=== PATIENT | male | born 1980 | race Caucasian/White ===

== ENCOUNTER 2021-05-01 18:54 | Inpatient (IN) ==
[2021-05-01] MEDS ORDERED: LORazepam 1 MG TAB SL STA (19:14)
--- NOTE | 2021-05-01 19:22 | Emergency Department Note ---
History of Present Illness General Chief complaint: Mental Health Evaluation Stated complaint: 302 Time Seen by Provider: 05/01/21 18:59 History of Present Illness 41-year-old male presents to the ED with a chief complaint of a suicide attempt. The patient reportedly was found in his car with a running with a hose connected to his tailpipe with a hose going into the car. The patient denied that he was trying to kill himself. He states that he is going through some stuff. He would not elaborate what exactly he was going through. He states that his 3-year-old child and are in [place]. He is a real estate closing coordinator. He recently bought a house here. He states that it is not going to be ready for couple of months. He also has a 22-year-old daughter. It is unclear at this time who called police but the patient states that they "pinged" his phone and that is how the police found him. He states he did not call the police. The patient seems upset and agitated that he is here. He does not feel he needs mental health services. Home Medications Medication Instructions Recorded Confirmed Type None (Patient States No Home Meds) #0 12/04/08 History OXYCODONE/ACETAMINOPHEN 5MG/325MG 2 tab PO Q6HR PRN #14 04/04/09 Rx (PERCOCET 5MG/325MG) Allergies Allergy/AdvReac Type Severity Reaction Status Date / Time No Known Allergies Allergy Unknown Verified 04/23/04 15:51 caffeine AdvReac Mild NO Verified 09/16/09 02:[address] COVINGTON [id number] Allergy Unknown Uncoded 09/24/02 15:42 Past Med/Surg History Social History Smoking Status: Unknown if ever smoked Preferred Language: Uzbek Review of Systems A total of 10 systems reviewed and were otherwise negative Physical Exam Vital Signs Vital Signs - 24 hr 05/01/21 18:57 05/01/21 21:21 Temperature 36.9 C Temperature Source Oral Pulse Rate 65 Respiratory Rate 20 Respiratory Depth Normal Blood Pressure 128/85 Blood Pressure [Left Arm] 113/59 L Blood Pressure Mean 99 Blood Pressure Mean [Left Arm] 77 Blood Pressure Position Sitting Pulse Oximetry 96 Oxygen Delivery Method Room Air Sepsis Recent Fever Within 48 Hours No Sepsis New/Unexplained Change in Mental Status N/A Sepsis Action Taken by Nursing No Action Required CONSTITUTIONAL/VITAL SIGNS: Reviewed / noted above. GENERAL: Non-toxic in appearance. INTEGUMENTARY: Warm, dry, and Wol[place]. HEAD: Normocephalic. EYES: without scleral icterus or trauma. ENT/OROPHARYNX: clear and moist. LYMPHADENOPATHY/NECK: Is supple without lymphadenopathy or meningismus. RESPIRATORY: Clear to auscultation bilaterally. No increased work of breathing. CARDIOVASCULAR: Regular rate and rhythm. GI/ABDOMEN: Soft and nontender. No organomegaly or pulsatile mass. EXTREMITIES: Warm and well perfused. BACK: No CVA tenderness. NEUROLOGICAL: Intact without focal deficits. PSYCHIATRIC: Patient seems upset and agitated that he has been brought here. He denies being suicidal. He states that he has a lot of stuff he needs to do. He denies the claim that he was trying to kill himself. MUSCULOSKELETAL: Normally developed with good muscle tone. TRIAGE NURSING DOCUMENTATION REVIEWED. Course Administered Medications Discontinued Medications Haloperidol Lactate (Haloperidol Lactate 5 Mg/Ml 1 Ml Vial) 10 mg IM NOW STA Stop: 05/01/21 19:44 Last Admin: 05/01/21 19:52 Dose: 10 mg Documented by: [id number] Haloperidol Lactate (Haloperidol Lactate 5 Mg/Ml 1 Ml Vial) Confirm Administered Dose 10 mg .ROUTE .STK-MED ONE Stop: 05/01/21 19:44 Last Admin: 05/01/21 20:34 Dose: Not Given Documented by: [id number] Lorazepam (Lorazepam 1 Mg Tab) 2 mg SL NOW STA Stop: 05/01/21 19:15 Last Admin: 05/01/21 19:23 Dose: 2 mg Documented by: [id number] Lorazepam (Lorazepam 2 Mg/Ml Vial (Im Use)) 2 mg IM NOW STA Stop: 05/01/21 19:43 Last Admin: 05/01/21 19:52 Dose: 2 mg Documented by: [id number] Lorazepam (Lorazepam 2 Mg/Ml Vial (Im Use)) Confirm Administered Dose 2 mg .ROUTE .STK-MED ONE Stop: 05/01/21 19:44 Last Admin: 05/01/21 20:34 Dose: Not Given Documented by: [id number] Medical Decision Making Differential Diagnosis Differential includes toxic ingestions, self-mutilation, suicidal ideation, suicide attempt, depression. Medical Records Attestation: I reviewed the patient's medical records. Home Medications Current Medication List: was personally reviewed by me Laboratory Data Attestation: I reviewed the patient's lab results. Result diagrams: 05/01/21 20:56 05/01/21 20:56 Lab Results 05/01/21 05/01/21 05/01/21 Range/Units 20:56 20:56 20:56 WBC 6.55 (4.8-10.8) K/uL RBC 4.76 (4.7-6.1) M/uL Hgb 12.4 L (14.0-18.0) g/dL Hct 38.3 L (42-52) % MCV 80.5 (80-100) fL MCH 26.1 (25-34) pg MCHC 32.4 (32-36) g/dL RDW Std Deviation 54.4 H (36.4-46.3) fL RDW Coeff of Robby 18.4 H (11.5-14.5) % Plt Count 296 (130-400) K/uL MPV 8.4 (7.4-10.4) fL Immature Gran % (Auto) 0.2 % Neut % (Auto) 53.8 % Lymph % (Auto) 36.0 % Fajardo % (Auto) 6.9 % Eos % (Auto) 2.9 % Baso % (Auto) 0.2 % Neut # (Auto) 3.53 (1.4-6.5) K/uL Lymph # (Auto) 2.36 (1.2-3.4) K/uL Fajardo # (Auto) 0.45 (0.11-0.59) K/uL Eos # (Auto) 0.19 (0-0.5) K/uL Baso # (Auto) 0.01 (0-0.2) K/uL Immature Gran # (Auto) 0.01 (0.00-0.02) K/uL Carboxyhemoglobin % THgb Sodium 142 (136-145) mmol/L Potassium 3.5 (3.5-5.1) mmol/L Chloride 107 (98-107) mmol/L Carbon Dioxide 26 (21-32) mmol/L Anion Gap 9.0 (3-11) BUN 10 (7-18) mg/dl Creatinine 0.91 (0.6-1.4) mg/dl Est Cr Clr Drug Dosing 117.1 ml/min Est GFR ( Amer) 119.2 ml/min Est GFR (Non-Af Amer) 102.9 ml/min BUN/Creatinine Ratio 11.4 (10-20) Glucose 78 (70-99) mg/dl Calcium 8.7 (8.5-10.1) mg/dl Total Bilirubin 0.3 (0.2-1) mg/dl AST 48 H (15-37) U/L ALT 81 H (12-78) U/L Alkaline Phosphatase 79 (45-117) U/L Total Protein 6.9 (6.4-8.2) gm/dl Albumin 3.5 (3.4-5.0) gm/dl Globulin 3.4 (2.5-4.0) gm/dl Albumin/Globulin Ratio 1.0 (0.9-2) TSH 1.540 (0.300-4.500) uIu/ml Salicylates 2.0 L (2.8-20) mg/dl Acetaminophen < 2 L (10-30) ug/ml Ethyl Alcohol mg/dL (0-3) mg/dl COVID-19 Eval Order SARS-CoV-2 (PCR) (Negative) 05/01/21 05/01/21 05/01/21 Range/Units 20:56 20:56 22:03 WBC (4.8-10.8) K/uL RBC (4.7-6.1) M/uL Hgb (14.0-18.0) g/dL Hct (42-52) % MCV (80-100) fL MCH (25-34) pg MCHC (32-36) g/dL RDW Std Deviation (36.4-46.3) fL RDW Coeff of Robby (11.5-14.5) % Plt Count (130-400) K/uL MPV (7.4-10.4) fL Immature Gran % (Auto) % Neut % (Auto) % Lymph % (Auto) % Fajardo % (Auto) % Eos % (Auto) % Baso % (Auto) % Neut # (Auto) (1.4-6.5) K/uL Lymph # (Auto) (1.2-3.4) K/uL Fajardo # (Auto) (0.11-0.59) K/uL Eos # (Auto) (0-0.5) K/uL Baso # (Auto) (0-0.2) K/uL Immature Gran # (Auto) (0.00-0.02) K/uL Carboxyhemoglobin 0.0 % THgb Sodium (136-145) mmol/L Potassium (3.5-5.1) mmol/L Chloride (98-107) mmol/L Carbon Dioxide (21-32) mmol/L Anion Gap (3-11) BUN (7-18) mg/dl Creatinine (0.6-1.4) mg/dl Est Cr Clr Drug Dosing ml/min Est GFR ( Amer) ml/min Est GFR (Non-Af Amer) ml/min BUN/Creatinine Ratio (10-20) Glucose (70-99) mg/dl Calcium (8.5-10.1) mg/dl Total Bilirubin (0.2-1) mg/dl AST (15-37) U/L ALT (12-78) U/L Alkaline Phosphatase (45-117) U/L Total Protein (6.4-8.2) gm/dl Albumin (3.4-5.0) gm/dl Globulin (2.5-4.0) gm/dl Albumin/Globulin Ratio (0.9-2) TSH (0.300-4.500) uIu/ml Salicylates (2.8-20) mg/dl Acetaminophen (10-30) ug/ml Ethyl Alcohol mg/dL 19.6 H (0-3) mg/dl COVID-19 Eval Order Covid19 at [facility] SARS-CoV-2 (PCR) (Negative) 05/01/21 Range/Units 22:03 WBC (4.8-10.8) K/uL RBC (4.7-6.1) M/uL Hgb (14.0-18.0) g/dL Hct (42-52) % MCV (80-100) fL MCH (25-34) pg MCHC (32-36) g/dL RDW Std Deviation (36.4-46.3) fL RDW Coeff of Robby (11.5-14.5) % Plt Count (130-400) K/uL MPV (7.4-10.4) fL Immature Gran % (Auto) % Neut % (Auto) % Lymph % (Auto) % Fajardo % (Auto) % Eos % (Auto) % Baso % (Auto) % Neut # (Auto) (1.4-6.5) K/uL Lymph # (Auto) (1.2-3.4) K/uL F[place]ardo # (Auto) (0.11-0.59) K/uL Eos # (Auto) (0-0.5) K/uL Baso # (Auto) (0-0.2) K/uL Immature Gran # (Auto) (0.00-0.02) K/uL Carboxyhemoglobin % THgb Sodium (136-145) mmol/L Potassium (3.5-5.1) mmol/L Chloride (98-107) mmol/L Carbon Dioxide (21-32) mmol/L Anion Gap (3-11) BUN (7-18) mg/dl Creatinine (0.6-1.4) mg/dl Est Cr Clr Drug Dosing ml/min Est GFR ( Amer) ml/min Est GFR (Non-Af Amer) ml/min BUN/Creatinine Ratio (10-20) Glucose (70-99) mg/dl Calcium (8.5-10.1) mg/dl Total Bilirubin (0.2-1) mg/dl AST (15-37) U/L ALT (12-78) U/L Alkaline Phosphatase (45-117) U/L Total Protein (6.4-8.2) gm/dl Albumin (3.4-5.0) gm/dl Globulin (2.5-4.0) gm/dl Albumin/Globulin Ratio (0.9-2) TSH (0.300-4.500) uIu/ml Salicylates (2.8-20) mg/dl Acetaminophen (10-30) ug/ml Ethyl Alcohol mg/dL (0-3) mg/dl COVID-19 Eval Order SARS-CoV-2 (PCR) NEGATIVE (Negative) MDM Narrative Patient presents to the ED by police. He reportedly was trying to asphyxiate himself with carbon monoxide by placing a hose from his tailpipe to his car. He was found by police in this manner. Details listed above. His vital signs are normal. The patient CBC and chemistry panel was unremarkable. Carboxyhemoglobin was 0. Alcohol was 19. The patient is felt to be medically cleared. He was initially treated with Haldol and Ativan he because of an lack of cooperation, however after the Haldol, he was cooperative for testing. Signed out to Ava Spain at the end of my shift. Impression & Plan Depression with suicidal ideation Discharge Plan Visit Data Chief Complaint: Mental Health Evaluation Stated Complaint: 302 Discharge Problem: Depression with suicidal ideation Patient Disposition: Transfer Behavioral Health Fac Forms Stand Alone Forms: My [facility], Suicide Prevention Resources Prescriptions Prescriptions: No Action None (Patient States No Home Meds) . Qty: 0 RF: 0 OXYCODONE/ACETAMINOPHEN 5MG/325MG (PERCOCET 5MG/325MG) tablet 2 tab PO Q6HR PRN Qty: 14 RF: 0 Referrals Referrals: PCP,NO [Primary Care Provider] -
[2021-05-01] MEDS ORDERED: LORazepam 2 MG/ML VIAL (IM USE) IM STA (19:42)
[2021-05-01] MEDS ORDERED: HALOPERIDOL LACTATE 5 MG/ML 1 ML VIAL IM STA (19:43)
[2021-05-01] MEDS ORDERED: HALOPERIDOL LACTATE 5 MG/ML 1 ML VIAL ONE (19:43)
[2021-05-01] MEDS ORDERED: LORazepam 2 MG/ML VIAL (IM USE) ONE (19:43)
[2021-05-01 21:08] LABS: Basophils # (auto) 0.01 K/uL (0-0.2); Basophils % (auto) 0.2 %; Eosinophils # (auto) 0.19 K/uL (0-0.5); Eosinophils % (auto) 2.9 %; Hematocrit (blood only) 38.3 % (42-52); Hemoglobin 12.4 g/dL (14.0-18.0); Immature Granulocytes # (auto) 0.01 K/uL (0.00-0.02); Immature Granulocytes % (auto) 0.2 %; Lymphocytes # (auto) 2.36 K/uL (1.2-3.4); Mean Corpuscular Hemoglobin 26.1 pg (25-34); Mean Corpuscular Hgb Conc 32.4 g/dL (32-36); Mean Corpuscular Volume 80.5 fL (80-100); Mean Platelet Volume 8.4 fL (7.4-10.4); Monocytes # (auto) 0.45 K/uL (0.11-0.59); Monocytes % (auto) 6.9 %; Neutrophils # (auto) 3.53 K/uL (1.4-6.5); Neutrophils % (auto) 53.8 %; Platelet Count 296 K/uL (130-400); RDW Coefficient of Variation 18.4 % (11.5-14.5); RDW Standard Deviation 54.4 fL (36.4-46.3); Red Blood Count 4.76 M/uL (4.7-6.1); White Blood Count 6.55 K/uL (4.8-10.8)
[2021-05-01 21:31] LABS: Acetaminophen < 2 ug/ml (10-30)
[2021-05-01 21:39] LABS: Albumin Level 3.5 gm/dl (3.4-5.0); BUN Creatinine Ratio 11.4 (10-20); Calcium 8.7 mg/dl (8.5-10.1); Creatinine Clr Calc Pharmacy 117.1 ml/min; Est GFR (African American) 119.2 ml/min; Est GFR (Non-African American) 102.9 ml/min; Potassium 3.5 mmol/L (3.5-5.1)
[2021-05-01 21:50] LABS: Bilirubin,Total 0.3 mg/dl (0.2-1); Globulin 3.4 gm/dl (2.5-4.0); Thyroid Stimulating Hormone 1.54 uIu/ml (0.300-4.500); Total Protein 6.9 gm/dl (6.4-8.2)
--- NOTE | 2021-05-02 07:19 | Emergency Department Note ---
ED Visit Note I received this patient in signout at the change of shift from Dr. Pruett, pending a more sober state and mental health evaluation. Patient remained cooperative during most of my time with him, he did request a nicotine patch. Patient did "demand to see the doctor" and asked only when and what time he was leaving. Patient was informed again of the 302 and this meant he was kept against his will due to the suicide attempt earlier. Case management and crisis will perform a bed search, patient was signed out at the change of shift to Dr. Huerta pending final disposition. .
--- NOTE | 2021-05-02 07:51 | Emergency Department Note ---
ED Visit Note The patient was taken in signout from Dr. Spain at the change of shift. Please see that note for details. The patient was pending through to evaluation for suicide attempt. Patient rested throughout the night. No significant issues. Patient was sedated by Dr. Pruett after ED arrival. Patient did well and was given his daily medications. His bed search is currently underway. Patient was reassessed prior to signout and was stable. Case was signed out to Dr. Levin at the change of shift. .
[2021-05-02 08:39] LABS: Appearance Urine Clear (Clear); Bilirubin Urine Negative (Negative); Blood Urine Negative (Negative); Color Urine Yellow; Glucose Urine UA Negative (Negative); Ketones Urine 2+ (Negative); Leukocyte Esterase Urine Negative (Negative); Nitrite Urine Negative (Negative); Protein Urine Negative (Negative); Urobilinogen Urine Negative (Negative)
[2021-05-02 09:01] LABS: Amphetamines+Metham, Urine Neg (Neg); Barbiturates, Urine Neg (Neg); Benzodiazepine, Urine Pos (Neg); Cocaine, Urine Neg (Neg); MDMA (Ecstacy), Urine Pos (Neg); Methadone, Urine Neg (Neg); Opiate, Urine Neg (Neg); Phencyclidine, Urine Neg (Neg)
[2021-05-02] MEDS: ALPRAZolam 0.5 MG TABLET PO PRN ×2 (13:06→22:59)
[2021-05-02] MEDS: GABAPENTIN 800 MG TAB PO SCH (20:41)
--- NOTE | 2021-05-02 21:27 | Emergency Department Note ---
ED Visit Note I received this patient at change of shift signout from Dr. ZIEGLER. Please see his note for care provided earlier in the day. The patient is a 41-year-old male who presented to the emergency department with a significant suicidal gesture. The patient was medically cleared prior. He was started on his medications. The patient was seen and evaluated by the mental health registered nurse hh case manager. He was felt to be a candidate for a 302. The patient had a 302 petition it was filled out and signed. The patient is undergoing bed search currently. The patient had no needs voiced during my shift. Currently the patient is being evaluated by the delegate from 3 S. The patient was signed out to Dr. Spain at change of shift. Continuation of care and further disposition. .
--- NOTE | 2021-05-03 07:38 | Emergency Department Note ---
ED Visit Note I received this patient in signout at the change of shift from Dr. Levin, pending a mental health bed search. The patient is on a 302. Patient is awaiting final disposition, signed out to Dr. Fragoso at the change of shift. Please see his notes for details. .
[2021-05-03] MEDS: GABAPENTIN 800 MG TAB PO SCH (09:01)
[2021-05-03] MEDS: ALPRAZolam 0.5 MG TABLET PO PRN ×3 (09:02→22:04)
--- NOTE | 2021-05-03 09:27 | Emergency Department Note ---
ED Visit Note This patient was signed out to me at shift change by Dr. Spain. The patient has been medically cleared and has had a 302 petition signed off and was awaiting placement. The patient was seen while he was awaiting placement in her emergency department by the psychiatrist who ordered Zyprexa. The patient will be signed out at shift change to the evening doctor. .
--- NOTE | 2021-05-03 13:20 | Communication Note ---
Date of Service: May 03, 2021 Psychiatric consultation requested as patient has been in emergency department for greater than 24 hours. Patient's initial presentation is consistent with a mixed manic episode, and his suicide attempt was severe, life-threatening, and requires him to be hospitalized. In the emergency department patient did require IM medications, but is since been able to maintain behavioral control. Upon speaking to the patient this afternoon, he is still quite irritable and agitated with pressured speech and little to no insight. He is agreeable to take medi cations to address his mood, but maintains that he does not have bipolar disorder despite the rapid mood swings he has been displaying over the last several months. Recommendations: Zyprexa 2.5 mg p.o. 3 times daily Xanax 1 mg p.o. 3 times daily as needed Gabapentin nightly Patient will require inpatient psychiatric hospitalization
[2021-05-03] MEDS: OLANZAPINE 2.5 MG TAB PO SCH ×2 (13:53→20:48)
[2021-05-03] MEDS: GABAPENTIN 600 MG TAB PO SCH (20:48)
--- NOTE | 2021-05-04 00:46 | Emergency Department Note ---
ED Visit Note Patient is a 41-year-old male who was signed out to me from Dr. Fragoso. 302 has been signed. He had suicidal ideations. He was seen by our psychiatry. Placed on Zyprexa. Signed out to Dr. Spain at the change of shift. .
[2021-05-04 04:47] VITALS: O2SAT 99
--- NOTE | 2021-05-04 06:50 | Emergency Department Note ---
ED Visit Note I received this patient in signout at the change of shift from Dr. Shaw, pending psychiatric bed placement. The patient is here on a 302. He has been on olanzapine per psychiatric recommendations. Patient has been calm and cooperative overnight. Case has been signed out to Dr. Fragoso this morning as the bed search resumes. Please see his notes for further details. .
--- NOTE | 2021-05-04 07:32 | Emergency Department Note ---
ED Visit Note This patient was signed out to me at shift change by Dr. Spain. This patient is currently on 3 of 2 petition secondary to suicidal attempt/gesture. He has been found difficult to place. Our mental health team has rounded on him and start him on Zyprexa which has helped. They did did round on him again today and are going to take him in her mental health unit for further treatment and evaluation and he will be admitted here. .
[2021-05-04] MEDS: OLANZAPINE 2.5 MG TAB PO SCH ×2 (09:42→14:12)
[2021-05-04] MEDS: GABAPENTIN 600 MG TAB PO SCH ×2 (09:42→21:07)
[2021-05-04] MEDS: ALPRAZolam 0.5 MG TABLET PO PRN (09:43)
[2021-05-04] MEDS ORDERED: hydrOXYzine HCl 25 MG TAB PO PRN (12:47)
[2021-05-04] MEDS ORDERED: SODIUM CHLORIDE 0.65% NA SOLN 45 ML (OCEAN) PRN (12:47)
[2021-05-04] MEDS ORDERED: MAGNESIUM HYDROXIDE SUSP 30 ML UDC PO PRN (12:47)
[2021-05-04] MEDS ORDERED: ALUMINUM/MAGNESIUM SUSP 30 ML UDC PO PRN (12:47)
[2021-05-04] MEDS ORDERED: BISMUTH SUBSALICYLATE LIQD 236 ML PO PRN (12:47)
[2021-05-04] MEDS ORDERED: ACETAMINOPHEN 325 MG TAB PO PRN (12:47)
[2021-05-04] MEDS ORDERED: LORazepam 1 MG TAB PO PRN (14:16)
--- NOTE | 2021-05-04 15:10 | History & Physical ---
Date of Service May 04, 2021 Impression / Recommendations Impression Patient is a 41-year-old male with a past psychiatric history notable for mood instability, currently presenting what appears to be a mixed manic state following a suicide attempt. Patient will require inpatient hospitalization for purposes of safety, stabilization, medication management. Patient is currently on a 302, but has shown commitment to care and desire to improve and therefore may be able to be converted to a 201 in the coming days. (1) Bipolar 1 disorder: The patient was admitted to the [facility] ([facility] unit) on every 15 minute checks (behavioral with suicide precautions for safety. The patient will participate in group, recreational, and milieu therapies and will be offered additional individual and family sessions as clinically appropriate. 05/04/2021atient was started on Zyprexa 2.5 mg 3 times daily in the emergency department yesterday. His dose would be increased and adjusted to 5 mg p.o. twice daily starting tonight. He is also taking Xanax 1 mg 3 times daily, which will be changed to Ativan 1 mg 3 times daily and gabapentin 1200 twice daily which will remain for now. Psychiatric History Identifying Data MAURICE RICHARDS is a 41-year-old M who currently lives in [place] with his mother and sister, has a history of mood instability, and was admitted on 05/04/21 13:08 on a 302 involuntary commitment for suicide attempt/mixed manic episode. Chief Complaint "My thoughts and anxiety got the best of me". History of Present Illness HPI as per psychiatric case management " Maurice Richards was brought to the ED by [place] [facility]/Officer Junaid whom completed a Box [employer] petitioning statement which reads: " Maurice reportedly tried to hang himself last night due to depression. Maurice had argument today with his daughter and mother where Maurice stormed off in an angry state. Maurice proceeded to text his daughter and ex- all day saying he was going to kill himself. Maurice sent pictures of a rope and hose saying he was going to hang himself or suffocate himself with carbon monoxide. Maurice made a plan to kill himself and he tried to act out said plan. Maurice was found in his parked vehicle in [facility]. Maurice was found in his running vehicle, with the windows up, a garden hose taped to the exhaust and leading to his passenger side window. There was condensation on the window and Maurice was very sweaty. Maurice was actively trying to kill himself and got out of his car when officers told him. Maurice said as soon as he gets to the hospital he was going to lie so he could get out of said hospital and go kill himself. Maurice was argumentative the entire time with police and kept saying he was going to kill himself. Maurice siis not wiling to get help and his family is scared of him." Upon arrival to ED, Maurice was asked by RN to change into paper scrubs per protocol. Maurice refused and stating he wasn't changing his clothes because he is leaving. This case loader operator met with patient in his room and explained police petition and mental health law. Encouraged to comply with requests in order to process to move forward. Maurice agreed to comply and changed into paper scrubs. Maurice verbalized that his anxiety is "over the top right now." Dr. Pruett arrived to Maurice's room and completed brief mental health assessment. Maurice stated numerous times "I don't need help. This is a waste of everyone's resou rces and time. People need to mind their own business. Last time I checked this is a free [place] and people can do whatever the fuck they want to do." Physician asked Maurice if he was in process of attempting suicide when police arrived and he stated "no." Maurice was confronted with text messages he had sent to daughter indicating he was attempting suicide. Maurice argumentative and debating whether he can be held in ED against his will. Process of involuntary commitment explained to Maurice by physician. Maurice stated 'this happened to me once before and they only kept me one day and left me go." Physician advised Maurice that due to severity of his act of furtherance to complete suicide by carbon monoxide asphyxiation, he will be referred to and admitted to an inpatient mental health facility. Physician advised Maurice he will order medication to help with his anxiety." Upon evaluation today, patient endorses mood instability stretching back approximately 20 years. Patient states at that time he was feeling low and approached his primary care doctor looking for medication, but was turned off to the idea of medication when he seemed to get no relief of his symptoms with the SSRI medication. Patient states that he had been relatively stable up until recently when a mixture of compounding stresses caused him to have a high level of anxiety and panic attacks and ultimately led him to attempt suicide. Patient explains his stressors as having to deal with his alcoholic mother, as well as having an impending move to a new location. Patient states that his stress was amplified by the pandemic and having to spend large periods of time at home with his father and stepmother whom he does not get along with well. Patient states that on Saturday all of his stress culminated and he went out and bought a hose to attach to his car exhaust and attempt suicide. Patient acknowledges that this time it was a suicide attempt, but states looking back he is unsure how things got so bad. Patient states that he had called the suicide hotline 4 times and that they ultimately convinced him to not go through with the attempt. Patient states that when the police arrived, his car was already off and he had decided that he was not going to kill himself. Patient states he is not been feeling suicidal since the incident, and is agreeable to use medications to stabilize his mood. He denies any issues with drug or alcohol. He denies any psychotic symptoms or auditory hallucinations or paranoia. Patient describes his symptoms as primarily anxiety related as well as difficulty with insomnia and racing thoughts. It was explained to patient that he was likely experiencing a mixed manic episode which he agreed with and added that there was a strong family history for bipolar disorder in his family. Patient endorses past med trials with Celexa and Seroquel, but both of which he felt were not helpful for him. Patient at this time is agreeable to treatment, compliant with medications, and eager to continue his treatment on an outpatient basis following his hospitalization. Past Psychiatric History Current Psychiatric Diagnosis: bipolar disorder Allergies Allergy/AdvReac Type Severity Reaction Status Date / Time No Known Allergies Allergy Unknown Verified 04/23/04 15:51 caffeine AdvReac Mild NO Verified 09/16/09 02:[address] COVINGTON Home Medications Medication Instructions Recorded Confirmed Type alprazolam 1 mg PO TID PRN 05/02/21 05/02/21 History gabapentin 1,200 mg PO BID 05/02/21 05/02/21 History Family History Family History of: Bipolar Family Mental Health History Comment: Grandfather-bipolar Mother-alcohol Alcohol History Hx of Alcohol Use Over the Past 12 Months: Yes AUDIT Total Score: 2 Smoking Use Have You Smoked or Used Tobacco Products in the Last 30 Days: No Smoking Status: Never smoker Substance History Hx of Prescription Med Misuse Over the Past 12 Months: No Hx of Over the Counter Med Misuse Over the Past 12 Months: No Hx of Inhalent Misuse Over the Past 12 Months: No Hx of Organic Substance Use Over the Past 12 Months: Yes Hx of Illegal Substances/Street Drug Use Over Past 12 Months: No Problems as a Result of Past Substance Use: None Identified Personal History Living Arrangements Comments: just moved from [place] and is temporarily living with mom and step-dad Highest Grade Completed: College Highest Grade Completed Comment: graduated from [employer] Marital Status: Beliefs That Will Affect Care: None Patient History Social History Smoking Status: Never smoker Preferred Language: Estonian Communication Ability: Effective Upholstery Covers Inspector Required: No Beliefs That Will Affect Care: None Feels Safe at Home: Yes Assistive Devices: Glasses Review of Systems Review of Systems: All systems reviewed & are unremarkable except as noted in HPI & below Physical Exam Psychiatric: Orientation: alert and oriented x 3 Apperance: appropriately dressed Eye Contact: good eye contact Motor Behavior: no abnormal motor movements Speech: + pressured speech Affect: euthymic affect Mood: + anxious mood Thought Process: goal directed thought process, linear/logical thought process and + concrete thought process Thought Content: + cognitive distortions and reality based without delusions Suicidal Thoughts: denies suicidal thoughts Homicidal Thoughts: denies homicidal thoughts Hallucinations: no auditory hallucinations and no visual hallucinations Cognition: recent memory grossly intact Estimated Intelligence: average estimated intelligence Insight: + limited insight Judgement: + limited judgement Vital Signs (Past 24 Hours): Last Vital Signs Temp 36.7 C 05/04/21 13:22 Pulse 83 05/04/21 13:22 Resp 16 05/04/21 13:22 BP 117/72 05/04/21 13:22 Pulse Ox 99 05/04/21 13:04 Exam Statement: A physical exam was performed in the ER prior to admission to the unit by Dr. Spain. I accept that physical as correct/medical clearance for the inpatient physical exam. Results & Data (U) Current Inpatient Medications Current Inpatient Medications: Current Inpatient Medications Acetaminophen (Acetaminophen 325 Mg Tab) 650 mg PO Q4H PRN PRN Reason: Headache or Minor Fever Stop: 06/03/21 12:46 Al Hydrox/Mg Hydrox/Simethicone (Aluminum/Magnesium Susp 30 Ml Udc) 30 ml PO Q4H PRN PRN Reason: GI Upset Stop: 06/03/21 12:46 Bismuth Subsalicylate (Bismuth Subsalicylate Liqd 236 Ml) 15 ml PO PRN PRN PRN Reason: Loose Stool Stop: 06/03/21 12:46 Gabapentin (Gabapentin 600 Mg Tab) 1,200 mg PO BID SPENCER Stop: 06/03/21 20:59 Hydroxyzine HCl (Hydroxyzine Hcl 25 Mg Tab) 50 mg PO HSZ PRN PRN Reason: Insomnia Stop: 06/03/21 12:46 Hydroxyzine HCl (Hydroxyzine Hcl 25 Mg Tab) 25 mg PO Q4H PRN PRN Reason: Anxiety Stop: 06/03/21 12:46 Lorazepam (Lorazepam 1 Mg Tab) 1 mg PO TID PRN PRN Reason: Anxiety Stop: 06/03/21 14:15 Magnesium Hydroxide (Magnesium Hydroxide Susp 30 Ml Udc) 30 ml PO DAILY PRN PRN Reason: Constipation Stop: 06/03/21 12:46 Olanzapine (Olanzapine 5 Mg Tablet) 5 mg PO BID SPENCER Stop: 06/03/21 20:59 Sodium Chloride (Sodium Chloride 0.65% Na Soln 45 Ml ([place])) 1 - 2 sprays NA PRN PRN PRN Reason: Nasal Dryness/Congestion Stop: 06/03/21 12:46
[2021-05-04] MEDS: OLANZapine 5 MG TABLET PO SCH (21:07)
[2021-05-04] MEDS: LORazepam 1 MG TAB PO PRN (23:52)
[2021-05-05] MEDS: OLANZapine 5 MG TABLET PO SCH ×2 (08:54→20:23)
[2021-05-05] MEDS: GABAPENTIN 600 MG TAB PO SCH ×2 (08:55→20:23)
[2021-05-05 13:32] LABS: 7-Aminoclonaz, Confirm NEGATIVE ng/mL (<25); Hydro-Alp Ur, GC/MS 1330 ng/mL (<25); Hydroxyethylflurazepam, Conf NEGATIVE ng/mL (<50); Hydroxymidazolam Ur, GC/MS NEGATIVE ng/mL (<50); Hydroxytriazolam NEGATIVE ng/mL (<50); Lorazepam, Ur GC/MS 1710 ng/mL (<50); MDA negative; MDEA negative; MDMA (Ecstasy) Urine, Confirm negative; Marijuana Quant, GCMS Urine >5000 ng/mL (<5); Nordiazepam, Confirm NEGATIVE ng/mL (<50); Oxazepam Ur, GC/MS NEGATIVE ng/mL (<50); Temazepam, Confirm NEGATIVE ng/mL (<50)
[2021-05-05] MEDS: LORazepam 1 MG TAB PO PRN ×2 (14:49→21:46)
--- NOTE | 2021-05-05 15:54 | Psychiatric Progress Note ---
Date of Service May 05, 2021 Impression / Recommendations Impression Patient is a 41-year-old male with a past psychiatric history notable for mood instability, currently presenting what appears to be a mixed manic state following a suicide attempt. Patient will require inpatient hospitalization for purposes of safety, stabilization, medication management. Patient is currently on a 302, but has shown commitment to care and desire to improve and therefore may be able to be converted to a 201 in the coming days. (1) Bipolar 1 disorder: The patient was admitted to the [facility] ([facility] mental health unit) on every 15 minute checks (behavioral with suicide precautions for safety. The patient will participate in group, recreational, and milieu therapies and will be offered additional individual and family sessions as clinically appropriate. 05/04/2021atient was started on Zyprexa 2.5 mg 3 times daily in the emergency department yesterday. His dose would be increased and adjusted to 5 mg p.o. twice daily starting tonight. He is also taking Xanax 1 mg 3 times daily, which will be changed to Ativan 1 mg 3 times daily and gabapentin 1200 twice daily which will remain for now. 1Ativan increased to 2 mg 3 times daily, Zyprexa remains at 5 mg p.o. twice daily. Interval History Chief Complaint "Thank you,I am feeling better". Review of Systems Sleep Information Total Hours of Sleep: 5.5 Meal Information Percent Meal Consumed - Breakfast: 100 Percent Meal Consumed - Lunch: 100 Percent Meal Consumed - Dinner: 100 Subjective Subjective Patient seen, chart reviewed and case discussed with treatment team, nursing and social work. Patient reports a good night of sleep and strong appetite. No side effects reported or observed. Patient has been compliant with his Zyprexa medication with several requests for as needed Ativan as instructed. Regarding mood, patient reports some improvement which they attribute to the medications as well as the therapy they have received on the unit. He is interacting appropriately with peers and participating meaningfully in group therapy. I spent 30 minutes with the patient, 50% of which was dedicated to counselling and coordination of care. Physical Exam Psychiatric Orientation: alert and oriented x 3 Apperance: appropriately dressed Eye Contact: good eye contact Motor Behavior: no abnormal motor movements Speech: + pressured speech Affect: euthymic affect Mood: + anxious mood Thought Process: goal directed thought process, linear/logical thought process and + concrete thought process Thought Content: + cognitive distortions and reality based without delusions Suicidal Thoughts: denies suicidal thoughts Homicidal Thoughts: denies homicidal thoughts Hallucinations: no auditory hallucinations and no visual hallucinations Cognition: recent memory grossly intact Estimated Intelligence: average estimated intelligence Insight: + limited insight Judgement: + limited judgement Vital Signs (Past 24 Hours) Last Vital Signs Temp 36.4 C L 05/05/21 06:00 Pulse 63 05/05/21 06:50 Resp 16 05/05/21 06:00 BP 124/79 05/05/21 06:50 Pulse Ox 99 05/04/21 13:04 Results & Data ([facility]) Laboratory Results Laboratory Results - last 24 hr 05/02/21 08:04 Urine MDEA negative MDMA negative Urine MDMA negative U OH-Alprazolam Confrm 1330 H 7-Amino Clonazepam NEGATIVE Ur Nordiazepam Confirm NEGATIVE U OH-ethylflurazepam NEGATIVE U Lorazepam Cnf GC/MS 1710 H U Oxazepam Confm GC/MS NEGATIVE Ur Temazepam Confirm NEGATIVE U OH-Triazolam Confirm NEGATIVE U OH-Midazolam Confirm NEGATIVE U Marijuana THC Carboxy >5000 H Drug Screen Comment SEE NOTE Current Inpatient Medications Current Inpatient Medications: Current Inpatient Medications Acetaminophen (Acetaminophen 325 Mg Tab) 650 mg PO Q4H PRN PRN Reason: Headache or Minor Fever Stop: 06/03/21 12:46 Al Hydrox/Mg Hydrox/Simethicone (Aluminum/Magnesium Susp 30 Ml Udc) 30 ml PO Q4H PRN PRN Reason: GI Upset Stop: 06/03/21 12:46 Bismuth Subsalicylate (Bismuth Subsalicylate Liqd 236 Ml) 15 ml PO PRN PRN PRN Reason: Loose Stool Stop: 06/03/21 12:46 Gabapentin (Gabapentin 600 Mg Tab) 1,200 mg PO BID SPENCER Stop: 06/03/21 20:59 Last Admin: 05/05/21 08:55 Dose: 1,200 mg Documented by: Hydroxyzine HCl (Hydroxyzine Hcl 25 Mg Tab) 50 mg PO HSZ PRN PRN Reason: Insomnia Stop: 06/03/21 12:46 Hydroxyzine HCl (Hydroxyzine Hcl 25 Mg Tab) 25 mg PO Q4H PRN PRN Reason: Anxiety Stop: 06/03/21 12:46 Lorazepam (Lorazepam 1 Mg Tab) 2 mg PO TID PRN PRN Reason: Anxiety Stop: 06/03/21 14:15 Last Admin: 05/05/21 14:49 Dose: 2 mg Documented by: Magnesium Hydroxide (Magnesium Hydroxide Susp 30 Ml Udc) 30 ml PO DAILY PRN PRN Reason: Constipation Stop: 06/03/21 12:46 Olanzapine (Olanzapine 5 Mg Tablet) 5 mg PO BID SPENCER Stop: 06/03/21 20:59 Last Admin: 05/05/21 08:54 Dose: 5 mg Documented by: Sodium Chloride (Sodium Chloride 0.65% Na Soln 45 Ml ([place])) 1 - 2 sprays NA PRN PRN PRN Reason: Nasal Dryness/Congestion Stop: 06/03/21 12:46 Mental Health & Subst Abuse Tx Therapist Name of Therapist: [facility] The[facility]ist's Time of Therapist Appointment: *Will need to complete paperwork prior to scheduling Therapy Appointment Comment: [address] [facility], [facility] [address], [place], [place] [address] Post Discharge Appointments Primary Care Physician [facility] Doctor[facility] Date of Appointment with PCP: 05/29/21 Time of Appointment with PCP: 9:30 am Provider Appointment Comment: [address], [address], [place] Contact Information Discharge Discharge Address: [address] [place] [address], [place] [address]
[2021-05-05] MEDS: hydrOXYzine HCl 25 MG TAB PO PRN (23:40)
[2021-05-06] MEDS: GABAPENTIN 600 MG TAB PO SCH ×2 (08:29→21:15)
[2021-05-06] MEDS: OLANZapine 5 MG TABLET PO SCH (08:29)
[2021-05-06] MEDS: LORazepam 1 MG TAB PO PRN ×2 (08:42→21:16)
--- NOTE | 2021-05-06 14:50 | Psychiatric Progress Note ---
Date of Service May 06, 2021 Impression / Recommendations Impression Patient is a 41-year-old male with a past psychiatric history notable for mood instability, currently presenting what appears to be a mixed manic state following a suicide attempt. Patient will require inpatient hospitalization for purposes of safety, stabilization, medication management. Patient is currently on a 201. (1) Bipolar 1 disorder: The patient was admitted to the [facility] ([facility] unit) on every 15 minute checks (behavioral with suicide precautions for safety. The patient will participate in group, recreational, and milieu therapies and will be offered additional individual and family sessions as clinically appropriate. 05/04/2021atient was started on Zyprexa 2.5 mg 3 times daily in the emergency department yesterday. His dose would be increased and adjusted to 5 mg p.o. twice daily starting tonight. He is also taking Xanax 1 mg 3 times daily, which will be changed to Ativan 1 mg 3 times daily and gabapentin 1200 twice daily which will remain for now. 05/05/2021tivan increased to 2 mg 3 times daily, Zyprexa remains at 5 mg p.o. twice daily. 05/06/2021Zyprexa will be increased to 5 mg p.o. every morning, 10 mg p.o. nightly. Patient continues to do well, will start discharge planning. Interval History Chief Complaint "I'm feeling okay". Review of Systems Sleep Information Total Hours of Sleep: 6 Meal Information Percent Meal Consumed - Breakfast: 100 Percent Meal Consumed - Lunch: 100 Percent Meal Consumed - Dinner: 100 Subjective Subjective Patient seen, chart reviewed and case discussed with treatment team, nursing and social work. Patient reports a good night of sleep and strong appetite. No side effects reported or observed. Denies adverse effects of the Zyprexa medication. Reports little difficulty sleeping, but denies issues with mood or racing thoughts. Regarding mood, patient reports some improvement which they attribute to the medications as well as the therapy they have received on the unit. Interacting appropriately with peers, making his needs known, and participating meaningfully in group therapy. I spent 30 minutes with the patient, 50% of which was dedicated to counselling and coordination of care. Physical Exam Psychiatric Orientation: alert and oriented x 3 Apperance: appropriately dressed Eye Contact: good eye contact Motor Behavior: no abnormal motor movements Speech: + pressured speech Affect: euthymic affect Mood: + anxious mood Thought Process: goal directed thought process, linear/logical thought process and + concrete thought process Thought Content: + cognitive distortions and reality based without delusions Suicidal Thoughts: denies suicidal thoughts Homicidal Thoughts: denies homicidal thoughts Hallucinations: no auditory hallucinations and no visual hallucinations Cognition: recent memory grossly intact Estimated Intelligence: average estimated intelligence Insight: + limited insight Judgement: + limited judgement Vital Signs (Past 24 Hours) Last Vital Signs Temp 36.5 C 05/06/21 06:48 Pulse 82 05/06/21 06:48 Resp 16 05/06/21 06:48 BP 110/75 05/06/21 06:48 Pulse Ox 99 05/04/21 13:04 Results & Data ([facility]) Current Inpatient Medications Current Inpatient Medications: Current Inpatient Medications Acetaminophen (Acetaminophen 325 Mg Tab) 650 mg PO Q4H PRN PRN Reason: Headache or Minor Fever Stop: 06/03/21 12:46 Al Hydrox/Mg Hydrox/Simethicone (Aluminum/Magnesium Susp 30 Ml Udc) 30 ml PO Q4H PRN PRN Reason: GI Upset Stop: 06/03/21 12:46 Bismuth Subsalicylate (Bismuth Subsalicylate Liqd 236 Ml) 15 ml PO PRN PRN PRN Reason: Loose Stool Stop: 06/03/21 12:46 Gabapentin (Gabapentin 600 Mg Tab) 1,200 mg PO BID SPENCER Stop: 06/03/21 20:59 Last Admin: 05/06/21 08:29 Dose: 1,200 mg Documented by: Hydroxyzine HCl (Hydroxyzine Hcl 25 Mg Tab) 50 mg PO HSZ PRN PRN Reason: Insomnia Stop: 06/03/21 12:46 Last Admin: 05/05/21 23:40 Dose: 50 mg Documented by: Hydroxyzine HCl (Hydroxyzine Hcl 25 Mg Tab) 25 mg PO Q4H PRN PRN Reason: Anxiety Stop: 06/03/21 12:46 Lorazepam (Lorazepam 1 Mg Tab) 2 mg PO TID PRN PRN Reason: Anxiety Stop: 06/03/21 14:15 Last Admin: 05/06/21 08:42 Dose: 2 mg Documented by: Magnesium Hydroxide (Magnesium Hydroxide Susp 30 Ml Udc) 30 ml PO DAILY PRN PRN Reason: Constipation Stop: 06/03/21 12:46 Olanzapine (Olanzapine 5 Mg Tablet) 5 mg PO QAM SPENCER Stop: 06/06/21 08:59 Olanzapine (Olanzapine 10 Mg Tab) 10 mg PO HS SPENCER Stop: 06/05/21 21:59 Sodium Chloride (Sodium Chloride 0.65% Na Soln 45 Ml ([place])) 1 - 2 sprays NA PRN PRN PRN Reason: Nasal Dryness/Congestion Stop: 06/03/21 12:46 Mental Health & Subst Abuse Tx Therapist Name of Therapist: [facility] Therapist's Time of Therapist Appointment: *Will need to complete paperwork prior to scheduling Therapy Appointment Comment: [address] [facility], [facility] [address], [place], [place] [address] Post Discharge Appointments Primary Care Physician Name Of Family Doctor: [facility] [place] - Dr. Mahoney Primary Care Date of Appointment with PCP: 05/29/21 Time of Appointment with PCP: 9:30 am Provider Appointment Comment: [address], [address], [place] Contact Information Discharge Discharge Address: [facility] [place] [address]
[2021-05-06] MEDS ORDERED: OLANZapine 10 MG TAB PO SCH (22:00)
[2021-05-06] MEDS: hydrOXYzine HCl 25 MG TAB PO PRN (22:36)
[2021-05-07 06:38] VITALS: BP 126/85; TEMP 97.9
[2021-05-07] MEDS: GABAPENTIN 600 MG TAB PO SCH (08:29)
[2021-05-07] MEDS: LORazepam 1 MG TAB PO PRN (08:40)
[2021-05-07] MEDS ORDERED: OLANZapine 5 MG TABLET PO SCH (09:00)
--- NOTE | 2021-05-07 09:59 | Discharge Summary ---
Date of Service May 07, 2021 History of Present Illness HPI as per psychiatric case management " Christian Vazquez was brought to the ED by [place]/Officer Junaid whom completed a Box [employer] petitioning statement which reads: " Christian reportedly tried to hang himself last night due to depression. Christian had argument today with his daughter and mother where Christian stormed off in an angry state. Christian proceeded to text his daughter and ex- all day saying he was going to kill himself. Christian sent pictures of a rope and hose saying he was going to hang himself or suffocate himself with carbon monoxide. Christian made a plan to kill himself and he tried to act out said plan. Christian was found in his parked vehicle in a parking lot [place] the [place]. Christian was found in his running vehicle, with the windows up, a garden hose taped to the exhaust and leading to his passenger side window. There was condensation on the window and Christian was very sweaty. Christian was actively trying to kill himself and got out of his car when officers told him. Christian said as soon as he gets to the hospital he was going to lie so he could get out of said hospital and go kill himself. Christian was argumentative the entire time with police and kept saying he was going to kill himself. Christian siis not wiling to get help and his family is scared of him." Upon arrival to ED, Christian was asked by RN to change into paper scrubs per protocol. Christian refused and stating he wasn't changing his clothes because he is leaving. This lining caser met with patient in his room and explained police petition and mental health law. Encouraged to comply with requests in order to process to move forward. Christian agreed to comply and changed into paper scrubs. Christian verbalized that his anxiety is "over the top right now." Dr. Pruett arrived to Christian's room and completed brief mental health assessment. Christian stated numerous times "I don't need help. This is a waste of everyone's resources and time. People need to mind their own business. Last time I checked this [place] free [place] and people can do whatever the fuck they want to do." Physician asked Christian if he was in process of attempting suicide when police arrived and he stated "no." Christian was confronted with text messages he had sent to daughter indicating he was attempting suicide. Christian argumentative and debating whether he can be held in ED against his will. Process of involuntary commitment explained to Christian by physician. Christian stated 'this happened to me once before and they only kept me one day and left me go." Physician advised Christian that due to severity of his act of furtherance to complete suicide by carbon monoxide asphyxiation, he will be referred to and admitted to an inpatient mental health facility. Physician advised Christian he will order medication to help with his anxiety." Upon evaluation today, patient endorses mood instability stretching back approximately 20 years. Patient states at that time he was feeling low and approached his primary care doctor looking for medication, but was turned off to the idea of medication when he seemed to get no relief of his symptoms with the SSRI medication. Patient states that he had been relatively stable up until recently when a mixture of compounding stresses caused him to have a high level of anxiety and panic attacks and ultimately led him to attempt suicide. Patient explains his stressors as having to deal with his alcoholic mother, as well as having an impending move to a new location. Patient states that his stress was amplified by the pandemic and having to spend large periods of time at home with his father and stepmother whom he does not get along with well. Patient states that on Saturday all of his stress culminated and he went out and bought a hose to attach to his car exhaust and attempt suicide. Patient acknowledges that this time it was a suicide attempt, but states looking back he is unsure how things got so bad. Patient states that he had called the suicide hotline 4 times and that they ultimately convinced him to not go through with the attempt. Patient states that when the police arrived, his car was already off and he had decided that he was not going to kill himself. Patient states he is not been feeling suicidal since the incident, and is agreeable to use med ications to stabilize his mood. He denies any issues with drug or alcohol. He denies any psychotic symptoms or auditory hallucinations or paranoia. Patient describes his symptoms as primarily anxiety related as well as difficulty with insomnia and racing thoughts. It was explained to patient that he was likely experiencing a mixed manic episode which he agreed with and added that there was a strong family history for bipolar disorder in his family. Patient endorses past med trials with Celexa and Seroquel, but both of which he felt were not helpful for him. Patient at this time is agreeable to treatment, compliant with medications, and eager to continue his treatment on an outpatient basis following his hospitalization. Physical Exam Psychiatric Orientation: alert and oriented x 3 Apperance: appropriately dressed Eye Contact: good eye contact Motor Behavior: no abnormal motor movements Speech: + pressured speech Affect: euthymic affect Mood: + anxious mood Thought Process: goal directed thought process, linear/logical thought process and + concrete thought process Thought Content: + cognitive distortions and reality based without delusions Suicidal Thoughts: denies suicidal thoughts Homicidal Thoughts: denies homicidal thoughts Hallucinations: no auditory hallucinations and no visual hallucinations Cognition: recent memory grossly intact Estimated Intelligence: average estimated intelligence Insight: + limited insight Judgement: + limited judgement Vital Signs (Past 24 Hours) Last Vital Signs Temp 36.6 C 05/07/21 06:36 Pulse 76 05/07/21 06:36 Resp 16 05/07/21 06:36 BP 126/85 05/07/21 06:36 Pulse Ox 99 05/04/21 13:04 Principal Diagnosis Bipolar Disorder Psychiatric Data See daily stay summary. In short, safety was maintained, and the patient was cooperative with care. Medication changes included initiation of Zyprexa and titration up to 15mg daily and they tolerated this well. A family session was held and safety plan was completed prior to discharge. Day of Discharge Assessment Today the patient voices readiness for discharge. They note improvement in mood and deny thoughts to harm self or others. Thoughts remain organized and they are improved from admission. There is no evidence of psychosis. They agree to take medications as prescribed and keep follow-up appointments. They are stable for discharge to outpatient level of care. Transition of Care Transition Of Care Record: was reviewed with the patient Advance Directives Advance Directives Information Provided: Yes Advance Directives: No Mental Health Advance Directive: No Advance Directives on File: No Living Will: No Power of Senior Editor: No Advance Directives Reason:: Declines as Mental Health Visit. Risk Factors Assessment Male: Yes : Yes Do You Have Access To A Gun?: No Health Problems: No Mental Health Diagnoses: Yes Previous Attempt: Yes Family History of Suicide: No Hopelessness: No Protective Factors Assessment : Yes Responsible for Young Children: Yes Supportive Family: Yes Good Rapport with Provider: Yes Discharge Data Lab Results 05/01/21 05/01/21 05/01/21 20:56 20:56 20:56 WBC 6.55 RBC 4.76 Hgb 12.4 L Hct 38.3 L MCV 80.5 MCH 26.1 MCHC 32.4 RDW Std Deviation 54.4 H RDW Coeff of Robby 18.4 H Plt Count 296 MPV 8.4 Immature Gran % (Auto) 0.2 Neut % (Auto) 53.8 Lymph % (Auto) 36.0 [place] % (Auto) 6.9 Eos % (Auto) 2.9 Baso % (Auto) 0.2 Neut # (Auto) 3.53 Lymph # (Auto) 2.36 [place] # (Auto) 0.45 Eos # (Auto) 0.19 Baso # (Auto) 0.01 Immature Gran # (Auto) 0.01 Carboxyhemoglobin Sodium 142 Potassium 3.5 Chloride 107 Carbon Dioxide 26 Anion Gap 9.0 BUN 10 Creatinine 0.91 Est Cr Clr Drug Dosing 117.1 Est GFR ( Amer) 119.2 Est GFR (Non-Af Amer) 102.9 BUN/Creatinine Ratio 11.4 Glucose 78 Calcium 8.7 Total Bilirubin 0.3 AST 48 H ALT 81 H Alkaline Phosphatase 79 Total Protein 6.9 Albumin 3.5 Globulin 3.4 Albumin/Globulin Ratio 1.0 TSH 1.540 Urine Color Urine Appearance Urine pH Ur Specific [place] Urine Protein Urine Glucose (UA) Urine Ketones Urine Blood Urine Nitrite Urine Bilirubin Urine Urobilinogen Ur Leukocyte Esterase Salicylates 2.0 L Urine Opiates Screen Ur Methadone, Qual Acetaminophen < 2 L Urine Barbiturates Ur Phencyclidine (PCP) U Amphetamin/Meth Scrn Urine MDEA MDMA (Ecstasy) Screen MDMA Urine MDMA U OH-Alprazolam Confrm U Benzodiazepines Scrn 7-Amino Clonazepam Ur Nordiazepam Confirm U OH-ethylflurazepam U Lorazepam Cnf GC/MS U Oxazepam Confm GC/MS Ur Temazepam Confirm U OH-Triazolam Confirm U OH-Midazolam Confirm Ur Cocaine Metabolite U Marijuana (THC) Screen U Marijuana THC Carboxy Drug Screen Comment Ethyl Alcohol mg/dL COVID-19 Eval Order SARS-CoV-2 (PCR) 09/20/21 09/20/21 09/20/21 20:56 20:56 22:03 WBC RBC Hgb Hct MCV MCH MCHC RDW Std Deviation RDW Coeff of Robby Plt Count MPV Immature Gran % (Auto) Neut % (Auto) Lymph % (Auto) [place] % (Auto) Eos % (Auto) Baso % (Auto) Neut # (Auto) Lymph # (Auto) [place] # (Auto) Eos # (Auto) Baso # (Auto) Immature Gran # (Auto) Carboxyhemoglobin 0.0 Sodium Potassium Chloride Carbon Dioxide Anion Gap BUN Creatinine Est Cr Clr Drug Dosing Est GFR ( Amer) Est GFR (Non-Af Amer) BUN/Creatinine Ratio Glucose Calcium Total Bilirubin AST ALT Alkaline Phosphatase Total Protein Albumin Globulin Albumin/Globulin Ratio TSH Urine Color Urine Appearance Urine pH Ur Specific [place] Urine Protein Urine Glucose (UA) Urine Ketones Urine Blood Urine Nitrite Urine Bilirubin Urine Urobilinogen Ur Leukocyte Esterase Salicylates Urine Opiates Screen Ur Methadone, Qual Acetaminophen Urine Barbiturates Ur Phencyclidine (PCP) U Amphetamin/Meth Scrn Urine MDEA MDMA (Ecstasy) Screen MDMA Urine MDMA U OH-Alprazolam Confrm U Benzodiazepines Scrn 7-Amino Clonazepam Ur Nordiazepam Confirm U OH-ethylflurazepam U Lorazepam Cnf GC/MS U Oxazepam Confm GC/MS Ur Temazepam Confirm U OH-Triazolam Confirm U OH-Midazolam Confirm Ur Cocaine Metabolite U Marijuana (THC) Screen U Marijuana THC Carboxy Drug Screen Comment Ethyl Alcohol mg/dL 19.6 H COVID-19 Eval Order Covid19 at [facility] SARS-CoV-2 (PCR) 05/01/21 05/02/21 05/02/21 22:03 08:04 08:04 WBC RBC Hgb Hct MCV MCH MCHC RDW Std Deviation RDW Coeff of Robby Plt Count MPV Immature Gran % (Auto) Neut % (Auto) Lymph % (Auto) [place] % (Auto) Eos % (Auto) Baso % (Auto) Neut # (Auto) Lymph # (Auto) [place] # (Auto) Eos # (Auto) Baso # (Auto) Immature Gran # (Auto) Carboxyhemoglobin Sodium Potassium Chloride Carbon Dioxide Anion Gap BUN Creatinine Est Cr Clr Drug Dosing Est GFR ( Amer) Est GFR (Non-Af Amer) BUN/Creatinine Ratio Glucose Calcium Total Bilirubin AST ALT Alkaline Phosphatase Total Protein Albumin Globulin Albumin/Globulin Ratio TSH Urine Color Yellow Urine Appearance Clear Urine pH 6.0 Ur Specific [place] 1.020 Urine Protein Negative Urine Glucose (UA) Negative Urine Ketones 2+ H Urine Blood Negative Urine Nitrite Negative Urine Bilirubin Negative Urine Urobilinogen Negative Ur Leukocyte Esterase Negative Salicylates Urine Opiates Screen Neg Ur Methadone, Qual Neg Acetaminophen Urine Barbiturates Neg Ur Phencyclidine (PCP) Neg U Amphetamin/Meth Scrn Neg Urine MDEA MDMA (Ecstasy) Screen Pos H MDMA Urine MDMA U OH-Alprazolam Confrm U Benzodiazepines Scrn Pos H 7-Amino Clonazepam Ur Nordiazepam Confirm U OH-ethylflurazepam U Lorazepam Cnf GC/MS U Oxazepam Confm GC/MS Ur Temazepam Confirm U OH-Triazolam Confirm U OH-Midazolam Confirm Ur Cocaine Metabolite Neg U Marijuana (THC) Screen Pos H U Marijuana THC Carboxy Drug Screen Comment Ethyl Alcohol mg/dL COVID-19 Eval Order SARS-CoV-2 (PCR) NEGATIVE 05/02/21 08:04 WBC RBC Hgb Hct MCV MCH MCHC RDW Std Deviation RDW Coeff of Robby Plt Count MPV Immature Gran % (Auto) Neut % (Auto) Lymph % (Auto) [place] % (Auto) Eos % (Auto) Baso % (Auto) Neut # (Auto) Lymph # (Auto) [place] # (Auto) Eos # (Auto) Baso # (Auto) Immature Gran # (Auto) Carboxyhemoglobin Sodium Potassium Chloride Carbon Dioxide Anion Gap BUN Creatinine Est Cr Clr Drug Dosing Est GFR ( Amer) Est GFR (Non-Af Amer) BUN/Creatinine Ratio Glucose Calcium Total Bilirubin AST ALT Alkaline Phosphatase Total Protein Albumin Globulin Albumin/Globulin Ratio TSH Urine Color Urine Appearance Urine pH Ur Specific [place] Urine Protein Urine Glucose (UA) Urine Ketones Urine Blood Urine Nitrite Urine Bilirubin Urine Urobilinogen Ur Leukocyte Esterase Salicylates Urine Opiates Screen Ur Methadone, Qual Acetaminophen Urine Barbiturates Ur Phencyclidine (PCP) U Amphetamin/Meth Scrn Urine MDEA negative MDMA (Ecstasy) Screen MDMA negative Urine MDMA negative U OH-Alprazolam Confrm 1330 H U Benzodiazepines Scrn 7-Amino Clonazepam NEGATIVE Ur Nordiazepam Confirm NEGATIVE U OH-ethylflurazepam NEGATIVE U Lorazepam Cnf GC/MS 1710 H U Oxazepam Confm GC/MS NEGATIVE Ur Temazepam Confirm NEGATIVE U OH-Triazolam Confirm NEGATIVE U OH-Midazolam Confirm NEGATIVE Ur Cocaine Metabolite U Marijuana (THC) Screen U Marijuana THC Carboxy >5000 H Drug Screen Comment SEE NOTE Ethyl Alcohol mg/dL COVID-19 Eval Order SARS-CoV-2 (PCR) Hospital Course (1) Bipolar 1 disorder: The patient was admitted to the [facility] ([facility]) on every 15 minute checks (behavioral with suicide precautions for safety. The patient will participate in group, recreational, and milieu therapies and will be offered additional individual and family sessions as clinically appropriate. 05/04/2021atient was started on Zyprexa 2.5 mg 3 times daily in the emergency department yesterday. His dose would be increased and adjusted to 5 mg p.o. twice daily starting tonight. He is also taking Xanax 1 mg 3 times daily, which will be changed to Ativan 1 mg 3 times daily and gabapentin 1200 twice daily which will remain for now. 05/05/2021tivan increased to 2 mg 3 times daily, Zyprexa remains at 5 mg p.o. twice daily. 05/06/2021Zyprexa will be increased to 5 mg p.o. every morning, 10 mg p.o. nightly. Patient continues to do well, will start discharge planning. Mental Health & Subst Abuse Tx Therapist Name of Therapist: [facility]'s Time of Therapist Appointment: Paperwork/referral faxed - please follow up to schedule Therapy Appointment Comment: [address] [id number] Post Discharge Appointments Primary Care Physician Name Of Family Doctor: [facility] - Dr. Mahoney Primary Care Date of Appointment with PCP: 05/29/21 Time of Appointment with PCP: 9:30 am Provider Appointment Comment: [address], [address], [place] Contact Information Discharge Discharge Address: [address] [place] [address], [place] [address] Discharge Plan Discharge Items Patient Disposition: Home - Self-Care Reason For Visit: BIPOLAR DISORDER Discharge Diagnosis: Bipolar Disorder Activity: Resume your previous activity Non-emergency contact: Primary Care Provider, Psychiatrist and Therapist Call non-emergency contact if: you have any medication questions and your symptoms worsen Follow-up/Referrals: Yessi Mahoney M.D. [Primary Care Provider] - Diet: Regular Addtl Attending Provider Instructions: SPECIAL CARE INSTRUCTIONS: 1. Follow through with your scheduled aftercare appointments. If unable to keep an appointment, please call to reschedule. 2. Take your medication only as prescribed. Medication should not be changed or stopped without the approval of your doctor. In the event of worsening symptoms or concerns about side effects, contact your doctor immediately. 3. Utilize new healthy coping skills, anger management skills, and stress management skills learned during your hospitalization. Journal feelings and process them with a support person. Identify stressors or situations that may result in relapse, deterioration or inappropriate behaviors and develop a plan to deal with those issues. 4. If your coping skills are ineffective and you are in crisis, contact your outpatient providers for direction. If unable to reach your providers, please call the [facility] CRISIS LINE AT , go to the [facility] walk-in center at [address] [place] [address] A, [place], or go to the closest Emergency Room. 5. Avoid alcohol and un-prescribed drugs. 6. You have been provided with the Mental Health Advance Directives Pamphlet for your review. 7. Your condition is stable for discharge to outpatient level of care, but recovery is an ongoing process. Ifthoughts to harm yourself or others return, follow the safety plan developed during your stay. Planning for a safe return home includes securing weapons. Our treatment team recommends weaponsbe removed from the home until your outpatient provider reassesses your progress. In rare cases where the items themselvescannot be removed, guns and ammunitionshould be secured separatelyand keys stored by a reliable personoutside of the home. If you were admitted on an involuntary commitment, the police or other legal authorities may be involved in this process. AFTERCARE APPOINTMENTS: * Please call your insurance company prior to your scheduled appointment to confirm your aftercare providers are covered. Take your insurance information to your maria guadalupe ointments. WHO TO CALL AND WHEN: Medical Emergencies: For questions or emergencies related to your hospital stay, please contact the Inpatient Behavioral Health Unit at [phone]. A car repairer helper is on-call 04/03 for the Behavioral Health Unit for emergencies At any time you feel your situation is an emergency, you may also call 911 immediately. Pending Studies at Discharge: No Stand-Alone Forms: My [facility], Smoking Cessation Medications and DC Order Prescriptions: New gabapentin 600 mg Tablet 1,200 mg PO BID 30 Days Qty: 120 RF: 0 olanzapine 5 mg Tablet 5 mg PO QAM 30 Days Qty: 30 RF: 0 olanzapine 10 mg Tablet 10 mg PO HS 30 Days Qty: 30 RF: 0 lorazepam 1 mg Tablet 2 mg PO BID PRN (Reason: anxiety) 30 Days Qty: 120 RF: 0 Discontinued alprazolam 1 mg tablet 1 mg PO TID PRN (Reason: Anxiety) RF: 0 gabapentin 600 mg capsule 1,200 mg PO BID RF: 0 Discharge Orders: Discharge Order (Routine); Ordered 05/07/21 Ordered By: Chapincito Phillips/Other Patient Handouts: ED Bipolar Disorder Admission Data Admit Date/Time: 05/04/21 13:08 Attending Provider: Chapincito Mercado Admit Provider: Chapincito Mercado Primary Care Provider: Yessi Mahoney Other Interventions: PSY Interdisciplinary Discharge Planning Last Done: 05/07/21 08:29 Coding Level of Care Code 83339 D/C day mgmt > 30 min Diagnoses Bipolar 1 disorder F31.9 Time Spent (min) 40
[2021-05-07 10:07] VITALS: PULSE 83
== END 2021-05-07 10:38 | disposition home or self-care (01) | DRG 885 ==
LOC: ED 18:54 → 3S 05-04 13:08
DX: F31.9 Bipolar disorder, unspecified; Z88.8 Allergy status to other drugs, medicaments and biological substances; F41.9 Anxiety disorder, unspecified; T58.02XA Toxic effect of carbon monoxide from motor vehicle exhaust, intentional self-harm, initial encounter; Z81.8 Family history of other mental and behavioral disorders